=== PATIENT | male | born 1980 | race Hispanic/Latino ===

== ENCOUNTER 2020-08-26 11:24 | Outpatient (CLI) | payer BC ==
[2020-08-26 12:34] LABS: Anion Gap 13 mmol/L (10-20); BUN (Urea Nitrogen) 14 mg/dL (8.9-20.6); Calc. Creatinine Clearance 0 mL/min (70-130); Calcium 9.4 mg/dL (7.8-10.44); Carbon Dioxide 27 mmol/L (22-29); Chloride 102 mmol/L (98-107); Glucose 92 mg/dL (70-105); Potassium 4.1 mmol/L (3.5-5.1); Sodium 138 mmol/L (136-145)
[2020-08-26 13:25] LABS: #Basophils 0.1 10x3/uL (0.0-0.2); #Eosinphils 0.1 10x3/uL (0.0-0.5); #Monocytes 0.2 10x3/uL (0.0-1.1); %Basophils 1.3 % (0.0-2.0); %Eosinophils 1.3 % (0.0-6.0); %Lymphocytes 48.1 % (18.0-47.0); %Monocytes 4.2 % (0.0-10.0); %Neutrophils 45.1 % (40.0-75.0); Hemoglobin 14.7 g/dL (13.5-17.5); Mean Corpuscular HGB CONC 32.5 g/dL (32.0-36.0); Mean Corpuscular Hemoglobin 27.5 pg (27.0-33.0); Mean Corpuscular Volume 84.5 fl (81.2-95.1); Platelet Count 128 10x3/uL (150-450); RBC Distribution Width 13.9 % (11.5-14.5); Red Blood Cell (RBC) Count 5.35 10x6/uL (4.32-5.72); White Blood Cell (WBC) Count 4.5 10x3/uL (3.5-10.5)
[2020-08-26 13:27] LABS: Platelet Clumps SLIGHT; Platelet Morphology Comment Appears Adequate; RBC Morphology Normal
[2020-08-26 22:35] LABS: SARS-CoV-2 PCR by NAA Not Detected (NotDetected)
== END 2020-08-26 11:25 | disposition home or self-care (01) ==
LOC: LABBT 11:24
PROVIDERS: ATTEND Surgery
DX: Z01.812 Encounter for preprocedural laboratory examination (principal); K40.90 Unilateral inguinal hernia, without obstruction or gangrene, not specified as recurrent; Z20.822 Contact with and (suspected) exposure to COVID-19
CPT/HCPCS: 80048; 85025; 87635; U0003; U0005

== ENCOUNTER 2020-08-29 08:39 | Day surgery (SDC) | payer BC ==
[2020-08-27 12:34] VITALS: BMI 25.9
[2020-08-29] MEDS ORDERED: Ketorolac Tromethamine 30 MG/ML VIAL ONE (08:52)
[2020-08-29] MEDS ORDERED: Acetaminophen 500 MG TAB ONE (08:52)
[2020-08-29] MEDS ORDERED: Midazolam HCl 2 mg/2 ml Vial ONE (10:28)
[2020-08-29] MEDS ORDERED: Fentanyl 100 MCG/2 ML VIAL ONE (10:28)
[2020-08-29] MEDS ORDERED: Lidocaine 1% PF 5 ML VIAL ONE (10:33)
[2020-08-29] MEDS ORDERED: Dexamethasone 20 MG/5 ML VIAL ONE (10:33)
[2020-08-29] MEDS ORDERED: PROPOFOL 200 MG/20 ML VIAL ONE (10:33)
[2020-08-29] MEDS ORDERED: Ondansetron PF 4 MG/2 ML Vial ONE (10:33)
[2020-08-29] MEDS ORDERED: Bupivacaine 0.25% HCL 30 ML VIAL ONE (10:36)
[2020-08-29] MEDS ORDERED: Lidocaine 2% w/Epinephrine 1:200K 20 ML VIAL ONE (10:36)
[2020-08-29] MEDS ORDERED: Bupivacaine PF 0.5% 30 ML VIAL ONE (10:59)
[2020-08-29] MEDS ORDERED: Meperidine HCl/PF 25 MG/ML VIAL ONE (12:26)
== END 2020-08-29 14:12 | disposition home or self-care (01) ==
LOC: SDC 08:39
PROVIDERS: ATTEND Surgery
PROC: 0YQ60ZZ Repair Left Inguinal Region, Open Approach (ICD-10-PCS; principal; 2020-08-29)
DX: K40.90 Unilateral inguinal hernia, without obstruction or gangrene, not specified as recurrent (principal)
CPT/HCPCS: A4306; C1781; J0690; J1100; J1885; J2175; J2250; J2405; J2704; J3010; S0020